=== PATIENT | female | born 1940 | race Caucasian/White ===

== ENCOUNTER → 2016-10-06 | Outpatient (CLI) | payer MEDICARE ==
--- NOTE | 2016-10-06 11:15 | DI ---
Indication: ITS.REASON: R20.2 PARESTHESIA OF LOWER EXTREMITY severe bilateral leg pain. PROCEDURE: MRI LUMBAR SPINE W/O CONTRAST: Encounter: Initial Comparison: None Technique: Multiplanar multisequence MR imaging of the lumbar spine was performed without contrast. Findings: Dextroscoliosis of the lumbar spine. No acute fracture seen. Schmorl's node in the superior endplates of T11 and T12. There is some mild edema in the right pars region at L5. The remaining bone marrow signal intensity is grossly normal. Conus medullaris terminates normally at L1. Paraspinal soft tissues are unremarkable. Segmental analysis: L1-L2: Mild disk height loss and left lateral bulging without central canal stenosis. Degenerative facet disease contributing to mild right and moderate left neural foraminal stenosis. L2-L3: Moderate disk height loss with a disk osteophyte complex and degenerative facet disease contributing to mild central canal stenosis. Severe left neural foraminal stenosis is primarily bony. No significant right neural foraminal narrowing. L3-L4: Degenerative facet hypertrophy with a small disk osteophyte complex causing mild central canal narrowing. Mild right and severe left neural foraminal stenosis. There is impingement on the exiting left L3 nerve root. L4-L5: Degenerative facet hypertrophy with a disk protrusion contributes to mild central canal stenosis. Severe right neural foraminal stenosis with impingement on the exiting right L4 nerve root. Moderate to severe left neural foraminal narrowing also. L5-S1: Possible unilateral right L5 spondylolysis with degenerative facet hypertrophy contributing to moderate right neural foraminal stenosis. No central canal or left neural foraminal narrowing. Impression: Scoliosis with multifocal severe neural foraminal stenosis and nerve root impingement. .
== END ==
LOC: IMA 09:53
PROVIDERS: ATTEND Family Medicine
DX: M41.9 Scoliosis, unspecified (principal); M48.06 Spinal stenosis, lumbar region; M79.604 Pain in right leg; M79.605 Pain in left leg; R20.2 Paresthesia of skin